=== PATIENT | male | born 1935 | race Two or more races ===

== ENCOUNTER 2017-09-16 17:30 | Inpatient (IN) | payer MEDICARE, MEDICAID ==
[~2017-09-16] VITALS: Ht 172.7 cm; Wt 81.6 kg
[2017-09-16] MEDS ORDERED: IV NORMAL SALINE 1000 ML BAG IV ONE (18:45)
[2017-09-16] MEDS ORDERED: AZTREONAM 2 G in IV NORMAL SALINE 100 ML IV ONE (18:45)
[2017-09-16] MEDS ORDERED: VANCOMYCIN IV 1,000 MG in IV DEXTROSE 5% 250 ML IV ONE (18:45)
[2017-09-16] MEDS ORDERED: GENTAMICIN SULFATE INJ 80 MG in IV DEXTROSE 5% 100 ML IV ONE (18:45)
--- NOTE | 2017-09-16 18:49 | NUR ---
Dr Yoder is at bedside evaluating patient.
--- NOTE | 2017-09-16 19:15 | NUR ---
Still for IV antibiotic meds, hands off report given to SHIRLEY cortes
--- NOTE | 2017-09-16 19:24 | NUR ---
Assumed care of patient. no acute distress noted. All patient needs attended and met. Call light is within reach. Will continue to monitor patient.
[2017-09-16 19:28] LABS: LYMPHOCYTES # (AUTO) 0.7 K/uL (20.0-40.0); LYMPHOCYTES % (AUTO) 9.9 % (20.5-51.5); MONOCYTES # (AUTO) 0.6 K/uL (2.0-10.0); NEUTROPHILS # (AUTO) 5.9 K/uL (1.8-8.9); WHITE BLOOD COUNT (AUTO) 7.2 K/uL (3.6-10.2)
[2017-09-16 19:33] LABS: BASOPHILS % (AUTO) 0.5 % (0.0-2.0); HEMATOCRIT 43.7 % (36.7-47.1); HEMOGLOBIN 15.1 g/dL (12.5-16.3); MEAN CORPUSCULAR HEMOGLOBIN 29.6 uug (23.8-33.4); MEAN CORPUSCULAR HGB CONC 35 g/dL (32.5-36.3); MEAN CORPUSCULAR VOLUME 85.6 fL (73.0-96.2); MONOCYTES % (AUTO) 7.7 % (0.0-11.0); NEUTROPHILS % (AUTO) 81.9 % (38.5-71.5); PLATELET COUNT (AUTO) 70 K/uL (152-348)
[2017-09-16 19:42] LABS: CHLORIDE 98 mmol/L (98-107); POTASSIUM 4.2 mmol/L (3.5-5.1)
[2017-09-16 19:46] LABS: ALANINE AMINOTRANSFERASE 34 U/L (16-63); ALKALINE PHOSPHATASE 72 U/L (50-136); ASPARTATE AMINOTRANSFERASE 38 U/L (15-37); BILIRUBIN,DIRECT 0.1 mg/dL (0.0-0.2); BILIRUBIN,TOTAL 0.5 mg/dL (0.2-1.0); CARBON DIOXIDE 28 mmol/L (21-32); GLUCOSE 299 mg/dL (74-106); TOTAL PROTEIN, SERUM 8.4 g/dL (6.4-8.2); UREA NITROGEN, BLOOD 10 mg/dL (7-18)
--- NOTE | 2017-09-16 19:48 | NUR ---
LAB CALLED WITH CRITICAL VALUE -- LACTIC ACID = 3.2, INFORMED
[2017-09-16 20:17] LABS: BAND % (MANUAL) 7 % (0-10); LYMPHOCYTES % (MANUAL) 10 % (20-40); MONOCYTES % (MANUAL) 9 % (2-10); NEUTROPHILS % (MANUAL) 74 % (42-75)
[2017-09-16] MEDS ORDERED: ONDANSETRON 4 MG/2 ML VIAL IV PRN (23:45)
[2017-09-16] MEDS ORDERED: MAGNESIUM HYDROXIDE 30 ML LIQUID UDC PO PRN (23:45)
[2017-09-16] MEDS ORDERED: ACETAMINOPHEN 325 MG TABLET PO PRN (23:45)
[2017-09-16] MEDS ORDERED: Z GUARD REMEDY PASTE 57 GM TUBE TOP PRN (23:45)
[2017-09-16] MEDS ORDERED: HYDROCODONE/APAP 5-325MG TABLET PO PRN (23:45)
[2017-09-17] MEDS ORDERED: VANCOMYCIN IV 200 ML ONE (00:24)
[2017-09-17] MEDS ORDERED: IV NORMAL SALINE 1000 ML BAG IV ONE (00:45)
[2017-09-17] MEDS ORDERED: OSELTAMIVIR PHOSPHATE 75 MG CAPSULE PO ONE (00:45)
--- NOTE | 2017-09-17 01:24 | NUR ---
Patient in bed, no acute distress noted. All patient needs attended and met. Call light is within reach.
--- NOTE | 2017-09-17 02:30 | NUR ---
Report given to Mayra WATSON
--- NOTE | 2017-09-17 03:22 | NUR ---
Pt. admitted to Med Surg , under care of Dr. Chey Griffiths Belongs List completed
--- NOTE | 2017-09-17 03:30 | NUR ---
PATIENT ADMITTED UNDER THE CARE OF DR. MILLA TERAN, PATIENT IN DROPLET PRECAUTION, WITH ON AND OFF NON PRODUCTIVE COUGH, BODY CHECK WAS DONE, WITH REDNESS ON LEFT GROIN AND ABDOMINAL FOLDS. KEPT CLEAN AND DRY, CALL LIGHT IN REACH. V/S STABLE.
[2017-09-17 03:53] VITALS: BP 155/81
[2017-09-17] MEDS: IV NS 1000 ML 1,000 ML IV PRN ×2 (04:27→15:56)
[2017-09-17 06:54] LABS: BASOPHILS % (AUTO) 0.6 % (0.0-2.0); HEMOGLOBIN 14.6 g/dL (12.5-16.3); LYMPHOCYTES # (AUTO) 1.2 K/uL (20.0-40.0); LYMPHOCYTES % (AUTO) 17.1 % (20.5-51.5); MEAN CORPUSCULAR HEMOGLOBIN 29.4 uug (23.8-33.4); MEAN CORPUSCULAR HGB CONC 35 g/dL (32.5-36.3); MEAN CORPUSCULAR VOLUME 84.9 fL (73.0-96.2); MONOCYTES # (AUTO) 0.6 K/uL (2.0-10.0); MONOCYTES % (AUTO) 9.3 % (0.0-11.0); PLATELET COUNT (AUTO) 55 K/uL (152-348); RED BLOOD CELL COUNT(AUTO) 4.95 MIL/uL (4.06-5.63); WHITE BLOOD COUNT (AUTO) 6.8 K/uL (3.6-10.2)
[2017-09-17 07:02] LABS: CARBON DIOXIDE 26 mmol/L (21-32); CHLORIDE 98 mmol/L (98-107); CHOLESTEROL 177 mg/dL (<200); CREATININE 0.7 mg/dL (0.6-1.3); GLUCOSE 263 mg/dL (74-106); HDL CHOLESTEROL 47 mg/dL (40-60); PHOSPHOROUS 3.2 mg/dL (2.5-4.9); POTASSIUM 3.3 mmol/L (3.5-5.1); TRIGLYCERIDES 159 MG/DL (30-150); UREA NITROGEN, BLOOD 9 mg/dL (7-18)
--- NOTE | 2017-09-17 07:31 | NUR ---
PATIENT SLEPT MOST OF THE NIGHT, NO SOB NO CHEST PAIN, REMAIN IN DROPLET PRECAUTION, NO COMPLAIN OF PAIN, TURN AND REPOSITION, KEPT CLEAN AND DRY. NO CONGESTION NOTED.
[2017-09-17] MEDS: OSELTAMIVIR PHOSPHATE 75 MG CAPSULE PO SCH ×2 (08:04→16:01)
[2017-09-17 09:49] LABS: BAND % (MANUAL) 1 % (0-10); LYMPHOCYTES % (MANUAL) 19 % (20-40); MONOCYTES % (MANUAL) 3 % (2-10); NEUTROPHILS % (MANUAL) 77 % (42-75)
[2017-09-17 11:13] LABS: MAGNESIUM 1.8 mg/dL (1.8-2.4); THYROID STIMULATING HORMONE 0.841 mIU/mL (0.358-3.740)
[2017-09-17 11:34] VITALS: BP 104/66
[2017-09-17] MEDS ORDERED: POTASSIUM CHLORIDE 20 MEQ TAB.PRT.SR PO ONE (13:45)
[2017-09-17] MEDS ORDERED: [UNRECOGNIZED DRUG - REMARK] (15:55)
[2017-09-17] MEDS ORDERED: LEVO5TAB13 PO (15:55)
[2017-09-17] MEDS ORDERED: ROSU20TA PO (15:55)
[2017-09-17] MEDS ORDERED: RETASIS EACHEYE (15:55)
[2017-09-17] MEDS ORDERED: CHOL10002 PO (15:55)
[2017-09-17] MEDS ORDERED: GLIM4TAB3 PO (15:55)
[2017-09-17] MEDS ORDERED: OMEG1CAP55 PO (15:55)
[2017-09-17] MEDS ORDERED: OLOP5DRO9 OP (15:55)
[2017-09-17] MEDS ORDERED: CALC500T29 PO (15:55)
[2017-09-17] MEDS ORDERED: SITA1TAB6 PO (15:55)
[2017-09-17] MEDS ORDERED: [UNRECOGNIZED DRUG - OTHER] (15:55)
[2017-09-17] MEDS ORDERED: LEVO50TA8 PO (15:55)
[2017-09-17] MEDS ORDERED: NYST15CR2 TP (15:55)
[2017-09-17] MEDS ORDERED: ESCI10TA55 PO (15:55)
[2017-09-17] MEDS ORDERED: CANA100T PO (15:55)
[2017-09-17] MEDS ORDERED: [UNRECOGNIZED DRUG - OTHER] (15:55)
[2017-09-17] MEDS ORDERED: NEOMYCIN (15:55)
[2017-09-17] MEDS ORDERED: OMEP20TA5 PO (15:55)
[2017-09-17] MEDS ORDERED: BETA15CR4 TP (15:55)
[2017-09-17] MEDS ORDERED: ASPI81TA31 PO (15:55)
[2017-09-17 16:08] VITALS: BP 108/68
--- NOTE | 2017-09-17 19:26 | NUR ---
PT IN ROOM ALERT AWAKE IN NO ACUTE DISTRESS. NO INCREASED COUGH OR FEVER NOTED AT THIS TIME. CONTINUING TAMIFLU AND REMAINS ON DROPLET PRECAUTIONS. NO S/S OF HYPER/HYPOGLYCEMIA. CONTINUE TO MONITOR. CALL LIGHT PLACED WITHIN REACH.
--- NOTE | 2017-09-17 19:30 | NUR ---
RECEIVED IN BED AWAKE, NO SOB NO CHEST PAIN, NOTED, KEPT CLEAN AND DRY, REMAIN DROPLET PRECAUTIONS, AFEBRILE, CONT TO MONITOR.
[2017-09-17 20:00] VITALS: BP 135/70
[2017-09-18 04:38] VITALS: BP 139/72
--- NOTE | 2017-09-18 07:27 | NUR ---
PT IN ROOM SLEEPING IN NO ACUTE DISTRESS. . CONTINUE TO MONITOR. CALL LIGHT PLACED WITHIN REACH.
[2017-09-18] MEDS: OSELTAMIVIR PHOSPHATE 75 MG CAPSULE PO SCH ×2 (08:09→16:04)
[2017-09-18] MEDS: IV NS 1000 ML 1,000 ML IV PRN ×2 (11:12→22:04)
[2017-09-18 11:27] VITALS: BP 100/54
[2017-09-18 11:29] VITALS: BP 140/74
[2017-09-18 16:02] VITALS: BP 115/62
[2017-09-18 20:00] VITALS: BP 125/74
[2017-09-18 23:31] VITALS: BP 101/39
--- NOTE | 2017-09-19 | NUR ---
RECEIVED PT AWAKE, HE'S ALERT WITH CONFUSION DENIES PAIN OR DISCOMFORT. NO RESP DISTRESS. CALL LIGHT WITHIN PT'S REACH WILL CONTINUE TO MONITOR PT
[2017-09-19 06:00] VITALS: BP 144/86
--- NOTE | 2017-09-19 06:25 | NUR ---
PT DOZES ON AND OFF IN BED, NO S/S OF PAIN OR RESP DISTRESS. CALL LIGHT WITHIN REACH, SAFETY MEASURES IN PLACE. ALL NEEDS MET
--- NOTE | 2017-09-19 07:40 | NUR ---
RECIEVED PATIENT ON BED, COMFORTABLE. ANXIOUS TO GO HOME. MADE COMFORTABLE.
[2017-09-19] MEDS: OSELTAMIVIR PHOSPHATE 75 MG CAPSULE PO SCH (08:17)
[2017-09-19] MEDS ORDERED: OSEL75CA PO (11:28)
[2017-09-19 11:34] VITALS: BP 128/75
--- NOTE | 2017-09-19 12:30 | NUR ---
APPETITE GOOD, RESTING. SPOKE TO SON FOR DISCHARGE. VERBALIZED UNDERSTANDING
[2017-09-19 15:22] VITALS: BP 137/65
--- NOTE | 2017-09-19 16:00 | NUR ---
LEFT IN STABLE WITH SON.
[2017-09-20 04:00] VITALS: BP 104/50
== END 2017-09-19 19:00 | disposition home or self-care (01) | DRG 194 ==
LOC: ER 17:32 → MED 23:55
DX: J10.1 Influenza due to other identified influenza virus with other respiratory manifestations (principal); J98.11 Atelectasis; D69.6 Thrombocytopenia, unspecified; E11.9 Type 2 diabetes mellitus without complications; I11.9 Hypertensive heart disease without heart failure; F09 Unspecified mental disorder due to known physiological condition; F03.90 Unspecified dementia, unspecified severity, without behavioral disturbance, psychotic disturbance, mood disturbance, and anxiety; M19.012 Primary osteoarthritis, left shoulder; M19.011 Primary osteoarthritis, right shoulder; M89.9 Disorder of bone, unspecified; Z79.84 Long term (current) use of oral hypoglycemic drugs; Z79.82 Long term (current) use of aspirin
CPT/HCPCS: 36415; 70030-TC; 71045; 83605; 83735; 84100; 84443; 85025; 85730; 87040; 87400; 93005; A4663; C1758; J1580; J3370; J3490; J7030; J7040; J7060